=== PATIENT | male | born 1960 | race Caucasian/White ===

== ENCOUNTER → 2024-11-10 07:44 | Outpatient (REF) | payer BC, SELFPAY | LOC: HWRAD 07:44 | PROVIDERS: ATTENDING PHYSICIAN Orthopaedic Surgery Hand Surgery; FAMILY PHYSICIAN Family Medicine | DX: M19.011 Primary osteoarthritis, right shoulder (principal); M25.511 Pain in right shoulder | CPT/HCPCS: 73200 ==

== ENCOUNTER 2025-01-28 05:45 | Day surgery (SDC) | payer BC, SELFPAY ==
[2025-01-16 11:07] LABS: Hematocrit 40.6 % (39.0-52.0); Hemoglobin 13.6 g/dL (13.0-18.0); Mean Corp Hgb Conc. 33.5 g/dL (33.0-37.0); Mean Corpuscular Hgb 28.7 pg (27.0-31.0); Mean Corpuscular Volume 85.7 fL (80.0-94.0); Mean Platelet Volume 10.6 fL (7.4-10.4); Platelet Count 275 10^3/uL (130-400); Red Blood Cell Count 4.74 10^6/uL (4.70-6.10); Red Cell Dist. Width 13.9 % (11.5-14.5); White Blood Cell Count 6.9 10^3/uL (4.8-10.8)
[2025-01-16 11:44] LABS: ALT (SGPT) 24 U/L (0-50); AST (SGOT) 23 U/L (17-59); Albumin 4.3 g/dl (3.5-5.0); Alkaline Phosphatase 70 U/L (38-126); Blood Urea Nitrogen 21 mg/dl (9-20); Carbon Dioxide 26 mmol/L (22-30); Chloride 107 mmol/L (98-107); Glucose 101 mg/dl (70-99); Potassium 4.7 mmol/L (3.5-5.1); Sodium 141 mmol/L (135-145); Total Bilirubin 0.6 mg/dl (0.2-1.3); Total Protein 7.8 g/dl (6.3-8.2); eGFR > 60.00
[2025-01-16 12:25] LABS: Glycohemoglobin (HgbA1c) 5.5 % (4.0-5.6)
[2025-01-16 14:09] VITALS: BMI 32.6
[2025-01-16 17:24] VITALS: BMI 32.6
[2025-01-28] VITALS (9 sets, daily range): BP systolic 104–123; BP diastolic 63–77
[2025-01-28] MEDS: NORMOSOL-R/PLASMALYTE-A 1000 IV (06:33)
[2025-01-28] MEDS: CELEBREX 200 MG PO (06:33)
[2025-01-28] MEDS: TYLENOL 1000 MG PO (06:33)
[2025-01-28] MEDS: ANCEF 5 IV (11:56)
== END 2025-01-28 12:48 | disposition home or self-care (01) ==
LOC: SDS 05:45
PROVIDERS: ATTENDING PHYSICIAN Orthopaedic Surgery Hand Surgery; FAMILY PHYSICIAN Family Medicine; OTHER PHYSICIAN Physician Assistant
DX: M19.011 Primary osteoarthritis, right shoulder (principal)
CPT/HCPCS: 23472; 36415; 73020; 80053; 83036; 85027; 87070; 93005; C1713; C1776

== ENCOUNTER → 2025-07-08 10:18 | Outpatient (REF) | payer BC, SELFPAY | LOC: RAD 10:18 | PROVIDERS: ATTENDING PHYSICIAN Orthopaedic Surgery Hand Surgery; FAMILY PHYSICIAN Family Medicine | DX: M25.511 Pain in right shoulder (principal) | CPT/HCPCS: 76882 ==